=== PATIENT | female | born 1985 | race Two or more races ===

== ENCOUNTER → 2024-07-06 | Emergency (ER) | payer MEDICAID ==
[~2024-07-06] VITALS: Ht 154.9 cm; Wt 76.2 kg
[2024-07-06 13:55] LABS: BASOPHILS % (AUTO) 0.3 % (0.0-2.0); EOSINOPHILS # (AUTO) 0.2 K/uL (0.0-0.7); EOSINOPHILS % (AUTO) 1.6 % (0.0-6.0); HEMATOCRIT 44 % (33-45); HEMOGLOBIN 15.4 g/dL (11.5-14.8); LYMPHOCYTES # (AUTO) 3.6 K/uL (0.8-4.8); LYMPHOCYTES % (AUTO) 37.7 % (20.0-44.0); MEAN CORPUSCULAR HEMOGLOBIN 29 PG (26.0-33.0); MEAN CORPUSCULAR HGB CONC 35 g/dl (31.0-36.0); MEAN CORPUSCULAR VOLUME 82 fL (82-100); MONOCYTES # (AUTO) 0.5 K/uL (0.1-1.30); MONOCYTES % (AUTO) 5.2 % (2.0-12.0); NEUTROPHILS # (AUTO) 5.2 K/uL (1.8-8.9); NEUTROPHILS % (AUTO) 55.2 % (43.0-81.0); PLATELET COUNT (AUTO) 251 K/uL (150-450); RED BLOOD CELL COUNT(AUTO) 5.32 MIL/uL (4.0-5.2); WHITE BLOOD COUNT (AUTO) 9.5 K/uL (4.3-11.0)
[2024-07-06 14:00] LABS: CALCIUM, SERUM 9.4 mg/dL (8.5-10.1); CARBON DIOXIDE 28 mmol/L (21-32); CHLORIDE 102 mmol/L (98-107); CREATININE 0.9 mg/dL (0.6-1.3); GLUCOSE 93 mg/dL (74-106); POTASSIUM 3.7 mmol/L (3.5-5.1); SODIUM SERUM 140 mmol/L (136-145); UREA NITROGEN, BLOOD 15 mg/dL (7-18)
[2024-07-06 14:48] VITALS: BP 116/89; TEMP 97.9; O2SAT 97
== END | disposition home or self-care (01) ==
LOC: ER 13:15
DX: R07.9 Chest pain, unspecified (principal); R06.02 Shortness of breath; R42 Dizziness and giddiness; R05.9 Cough, unspecified; E11.9 Type 2 diabetes mellitus without complications; E78.5 Hyperlipidemia, unspecified
CPT/HCPCS: 36415; 71045-TC; 80048-TC; 84443-TC; 84484-TC; 85025-TC

== ENCOUNTER 2024-12-28 13:49 | Emergency (ER) | payer MEDICAID ==
[~2024-12-28] VITALS: Ht 157.5 cm; Wt 74.8 kg
[2024-12-28 13:58] VITALS: BP 125/66; TEMP 98.2
[2024-12-28] MEDS ORDERED: METH4TAB3 PO (14:48)
[2024-12-28 15:02] VITALS: O2SAT 97
== END 2024-12-28 15:04 | disposition home or self-care (01) ==
LOC: ER 13:57
DX: R25.3 Fasciculation (principal); I51.9 Heart disease, unspecified
CPT/HCPCS: 82962-TC